=== PATIENT | female | born 1955 | race Caucasian/White ===

== ENCOUNTER → 2018-06-18 | Outpatient (CLI) | payer MEDICARE, BC | END | disposition home or self-care (01) | LOC: LAB 13:12 | PROVIDERS: ATTEND Specialist | DX: R79.89 Other specified abnormal findings of blood chemistry (principal); D64.9 Anemia, unspecified | CPT/HCPCS: 36415; 82272; 82728; 85045 ==

== ENCOUNTER 2018-06-24 06:50 | Day surgery (SDC) | payer MEDICARE, BC ==
[2018-06-23 15:23] VITALS: BP 137/69
--- NOTE | 2018-06-23 16:39 | DIREP ---
PROCEDURE:CHEST 2 VIEWS COMPARISON:None. INDICATIONS:PRE OP FINDINGS: LUNGS/PLEURA:No significant pulmonary parenchymal abnormalities or pleural effusion. CARDIAC:Normal cardiac silhouette and normal pulmonary vascularity. MEDIASTINUM:Normal BONES:Lower thoracic dextroscoliosis. Thoracolumbar screws and rods. OTHER:No additional findings. CONCLUSION:No acute cardiopulmonary process. Dictated by: Sofia Lennon MD on 06/23/2018 at 04:31 PM
[~2018-06-24] VITALS: Ht 167.6 cm; Wt 94.1 kg
[2018-06-24] VITALS (11 sets, daily range): BP systolic 114–144; BP diastolic 50–78
[~2018-06-24 06:50] MED LIST: ACET-687 PO; ALBU8.5H7 IH; CARV3.12 PO; FURO40TA4 PO; HEPARIN ONE; LEVO112T5 PO; NITR0.4T26 SL; NS 1000ML 1,000 ML ONE; OMEP40CA6 PO; PARO30TA45 PO; PRAV40TA2 PO; SUBLIMAZE ONE; VERSED ONE; XYLOCAINE ONE
[2018-06-24] MEDS ORDERED: PHENERGAN PO ONE (07:00)
[2018-06-24] MEDS ORDERED: VALIUM PO ONE (07:00)
[2018-06-24] MEDS ORDERED: NS 1000ML 1,000 ML IV SCH (07:00)
[2018-06-24] MEDS ORDERED: PHENERGAN ONE (07:06)
[2018-06-24] MEDS ORDERED: VALIUM ONE (07:06)
[2018-06-24] MEDS ORDERED: TYLENOL #4 ONE (09:16)
[2018-06-24] MEDS ORDERED: TYLENOL #4 PO ONE (09:30)
--- NOTE | 2018-06-24 10:24 | CCRH ---
DATE OF SERVICE: 06/24/2018 HEART CATH REPORT PRECATHETERIZATION DIAGNOSES: Abnormal myocardial perfusion scan. Preoperative evaluation before knee surgery, obesity, hypertension and PVCs, tachycardia, primarily sinus tachycardia, assess for coronary artery disease. She had an anterior hypoperfusion abnormality with some partial reperfusion breast attenuation versus ischemia was a consideration. POSTCATHETERIZATION DIAGNOSES: Short left main, fully patent, delayed filling of the LAD, but appears to be fully patent, circumflex dominant system with obtuse marginal and posterolateral branches coming off the circumflex and the whole circumflex system is fully patent. Right coronary artery, fair size vessel, appears to be fully patent. Left ventricle is normal in size with an LVEDP of 10 mm. Good wall contractility, ejection fraction of 60%. Angio-Seal deployed. Hemostasis achieved. PREOPERATIVE MEDICATIONS: Phenergan 50 mg p.o., Valium 2.5 mg p.o., Versed 2 mg IV, fentanyl 25 mcg IV. ANTICOAGULATION: Heparin 2000 units intra-arterially, 2000 units in the flush solution, 1000 units in the dye solution. Dye is Omnipaque. Total amount is 60 mL. CATHETERS: JL4 6-H[place] Konger, JR4 6-[place] Konger, and 6-[place]er angled pigtail catheter. ARTERIAL TIME: 6 minutes. FLUOROSCOPY TIME: 1.3 minutes. PROCEDURES: Left heart catheterization, bilateral selective coronary arteriography, left ventriculography via right femoral Lexie approach. NARRATION OF PROCEDURE: Under local anesthesia, right femoral artery was punctured percutaneously by arterial needle, guide wire passed in right femoral artery, 6-H[place] Konger Cordis sheath introduced, side port of the sheath used for femoral arterial pressure monitoring. Sheath anchored with suture. Left Lexie catheter introduced over guide wire into ascending aorta left coronary artery cannulated and left coronary angiography performed in ENGLISH and PANDEY projections with craniocaudal applications to visualize all branches. Left catheter exchanged for right coronary catheter and right coronary angiography performed in ENGLISH and PANDEY. This catheter exchanged for 6-Hong Konger pigtail catheter and catheter crossed the aortic valve and left ventricular LVEDP measured and LV gram performed in 30 degrees PANDEY view with 30 mL Omnipaque dye and panning of descending aorta attempted. Patient tolerated procedure well. No complications of procedure. Angio-Seal deployed for hemostasis. HEMODYNAMICS: LVEDP is 10 mm, LV pressure 127/10, femoral artery pressure 108/62 with a mean of 85. No gradient across the aorta on pullback of the central catheter. FINAL CONCLUSION: Normal coronary angiogram, normal LV function. RECOMMENDATIONS: Low cardiac risk for orthopedic surgery. Risk factor modification advised. David Brown MD DR: VY/jasiel JOB# [id number]
== END 2018-06-24 11:03 | disposition home or self-care (01) ==
LOC: SDC 06:50
PROVIDERS: ATTEND Specialist
DX: I49.3 Ventricular premature depolarization (principal); R00.0 Tachycardia, unspecified; R94.39 Abnormal result of other cardiovascular function study; I34.0 Nonrheumatic mitral (valve) insufficiency; I11.0 Hypertensive heart disease with heart failure; I50.32 Chronic diastolic (congestive) heart failure; M17.0 Bilateral primary osteoarthritis of knee; F10.21 Alcohol dependence, in remission; J44.9 Chronic obstructive pulmonary disease, unspecified; E66.9 Obesity, unspecified; Z68.33 Body mass index [BMI] 33.0-33.9, adult; Z79.899 Other long term (current) drug therapy; Z87.891 Personal history of nicotine dependence; Z98.890 Other specified postprocedural states; Z90.710 Acquired absence of both cervix and uterus; Z96.651 Presence of right artificial knee joint; Z80.8 Family history of malignant neoplasm of other organs or systems; Z82.49 Family history of ischemic heart disease and other diseases of the circulatory system
CPT/HCPCS: 36415; 71046; 85610; 85730; 93458; 99152; C1760; C1894 ×3; J1644 ×3; J2250; J3010; J7030 ×2; Q9967

== ENCOUNTER 2022-05-14 15:33 | Emergency (ER) | payer MEDICARE, BC ==
[~2022-05-14] VITALS: Ht 167.6 cm; Wt 83.9 kg
[2022-05-14 15:33] VITALS: BP 147/113
[~2022-05-14 15:33] MED LIST changes: -HEPARIN ONE; -NS 1000ML 1,000 ML ONE; -OMEP40CA6 PO; +OMEP40CA8 PO; +PARO30TA PO; -PARO30TA45 PO; -SUBLIMAZE ONE; -VERSED ONE; -XYLOCAINE ONE
--- NOTE | 2022-05-14 15:33 | NUR ---
ARRIVAL PT SYMPTOMS SINCE 399, EDP STATES IT IS NOT EMERGENT, NO CODE STROKE CALL NEEDED AT THIS TIME.
[2022-05-14 16:19] LABS: CARBON DIOXIDE 29.7 mmol/L (20.0-32)
--- NOTE | 2022-05-14 16:21 | DIREP ---
PROCEDURE:CT HEAD OR BRAIN W/O CONTRAST COMPARISON:None. INDICATIONS:right sided facial weakness TECHNIQUE:CT images were created without intravenous contrast. FINDINGS: VENTRICLES:The ventricles are normal in size and configuration. CEREBRUM:Normal cerebral morphology with appropriate tovar white matter differentiation. CEREBELLUM:Negative. BRAINSTEM:Negative. BASAL CISTERNS:Negative. HEMORRHAGE (Vol L*W*H*.52):No MASS LESION:No ACUTE INFARCT:No SKULL:Normal. SINUSES:Normal. OTHER:None CONCLUSION:No acute intracranial process Dictated by: Enrrique Monteiro DO on 05/14/2022 at 04:18 PM
[2022-05-14 16:33] LABS: BASOPHIL % 0.6 % (0.0-0.2); EOSINOPHIL # 0.1 10^3/uL (0.0-0.2); EOSINOPHIL % 1.9 % (0.0-5.0); LYMPHOCYTES # 0.92 10^3/uL1 (1.0-4.8); LYMPHOCYTES % 14.3 % (24.0-44.0); MEAN CORP HGB 18.3 pg (26-34); MONOCYTES # 0.5 10^3/uL (0.3-0.8); MONOCYTES % 7.6 % (5.0-12.0); NEUTROPHIL # 4.9 10^3/uL (1.8-7.7); NEUTROPHILS % 75.4 % (41.0-85.0); PLATELET COUNT 240 10^3/uL (150-400); RED CELL DISTRIBUTION WIDTH 20.1 % (11.5-14.5)
--- NOTE | 2022-05-14 16:41 | PCM.EKG ---
[facility] Test Date: 2022-05-14 Test Time: 16:38:21 Pat Name: ANSELMO BYERS Department: Room: Gender: F Evidence Technician: : 1955 Requested By: CONNIE FARFAN Order Number: [id number] Reading MD: Kevin Farfan Measurements Intervals [place] Rate: 86 P: -20 AL: 135 QRS: 4 QRSD: 85 T: 1 QT: 398 QTc: 476 Interpretive Statements Sinus rhythm Borderline T abnormalities, inferior leads No previous ECG available for comparison Electronically Signed On 05-14-2022 23:55:10 CDT by Kevin Farfan Please click the below link to view image of tracing.
--- NOTE | 2022-05-14 16:53 | DIREP ---
PROCEDURE:CHEST 1 VIEW COMPARISON:[facility], CT, CTA HEAD NECK, 05/14/2022, 04:12 PM. [facility], CR, XRAY CHEST 2 VWS, 06/23/2018, 03:42 PM. INDICATIONS:Weakness - Stroke FINDINGS: LUNGS/PLEURA:No focal consolidation, pleural effusion or pneumothorax. VASCULATURE:Normal. Unremarkable pulmonary vasculature. CARDIAC:Borderline cardiomegaly MEDIASTINUM:Normal. No visible mass or adenopathy. BONES:S shaped thoracolumbar scoliosis S shaped thoracolumbar scoliosis OTHER:Negative. CONCLUSION: 1. No focal infiltrate. 2. No change from prior. Dictated by: Rachid Calvo M.D. on 05/14/2022 at 03:50 PM Read in [place]
[2022-05-14 17:53] LABS: BILIRUBIN,URINE NEGATIVE (NEGATIVE); UROBILINOGEN,URINE 0.2 E.U./dL (0.2)
--- NOTE | 2022-05-14 17:54 | DIREP ---
PROCEDURE:CTA HEAD NECK CT-CTA HEAD W/WO CONTRAST COMPARISON:[facility], CT, CT HEAD BRAIN W/O CONTRAST, 05/14/2022, 04:05 PM. INDICATIONS:right sided facial droop - stroke TECHNIQUE:Following the rapid infusion of intravenous contrast, 1.3 mm axial CTA images were obtained through the head and neck. Multiplanar and 3-D reconstructions were performed from source images. FINDINGS: NECK CTA: AORTIC ARCH:Type 1 branching pattern. RIGHT CAROTID:No evidence of hemodynamically significant stenoses. LEFT CAROTID:No evidence of hemodynamically significant stenoses. VERTEBRAL ARTERIES: Diminutive distal left vertebral artery. Patent. NECK TISSUES:Unremarkable. LUNGS:Mild upper lobe predominant emphysematous change. MEDIASTINUM:No mass or adenopathy. BONE:2-3 mm anterolisthesis of C2 on C3.Degenerative change without evidence of acute osseus abnormality. HEAD CTA: INTERNAL CAROTIDS:Focal calcification within the proximal aspect of the right ICA. Mild atherosclerotic calcification also seen within the bilateral cavernous ICAs. Patent. No evidence of hemodynamically significant stenosis. ANTERIOR CEREBRALS:Unremarkable. MIDDLE CEREBRALS:Unremarkable. VERTEBRALS/BASILAR:Diminutive distal left vertebral artery and basilar artery. Probable origin of the bilateral hod carrier. POSTERIOR CEREBRALS:Probable origin of the bilateral hod carrier. PCOMM'S:Present bilaterally. HEAD SOFT TISSUES: Unremarkable. SINUSES:1.3 x 1.1 cm mucous retention cyst versus polyp within the medial left maxillary sinus. Remainder of the visualized paranasal sinuses mastoid air cells are well pneumatized. Please note that this examination was not tailored for evaluation of the brain parenchyma. CONCLUSION: 1. No evidence of hemodynamically significant stenoses or occlusion. 2. Mucous retention cyst versus polyp within the left maxillary sinus. 3. Additional findings as described. Dictated by: Andrew Reynolds MD on 05/14/2022 at 05:41 PM
--- NOTE | 2022-05-14 18:12 | ER.PDOC ---
General Chief Complaint: Stroke Symptoms Stated Complaint: POSSIBLE STROKE Time seen by MD: 15:35 Source: patient, family Exam Limitations: no limitations History of Present Illness Initial Comments Patient is a 66-year-old female with a past medical history of asthma COPD mitral valve regurgitation who comes in with new onset right facial droop and paralysis that started at 4:00 this morning. Patient states that she noticed at 4:00 this morning she could not move the right side of her face she states that she waited so long to come into the [facility] because her had an appointment and she was just cannot go to the ER there where his appointment was. However she later decided that it was too emergent and decided to come into the ER. she has no other symptoms or concerns just states that the right side of her face she cannot blink she cannot move her face she cannot lift her eyebrows - States that nothing makes her symptoms better or worse. Allergies: Coded Allergies: adhesive tape (Verified Allergy, Unknown, Rash, 06/23/18) levofloxacin (Verified Allergy, Unknown, Swelling, 06/23/18) Home Meds Reported Medications Furosemide (FUROSEMIDE) 40 Mg Tablet, 1 TAB PO PRN PRN for SHORTNESS OF BREATH, #30 TAB 5 Refills 06/23/18 Nitroglycerin (NITROGLYCERIN) 0.4 Mg Tab.subl, 0.4 MG SL PRN PRN for CHEST PAIN 06/23/18 Carvedilol 3.125MG (COREG 3.125MG) 3.125 Mg Tablet, 1 TAB PO BID, #180 TAB 1 Ref ill 06/23/18 Omeprazole (OMEPRAZOLE) 40 Mg Capsule.dr, 1 CAP PO DAILY, #30 CAP 3 Refills 06/23/18 Pravastatin Sodium (PRAVASTATIN SODIUM) 40 Mg Tablet, 1 TAB PO DAILY, #90 TAB 1 Refill 06/23/18 Acetaminophen With Codeine (TYLENOL WITH CODEINE #4 TABLET) 1 Each Tablet, 1 TAB PO TID, #120 TAB 06/23/18 Levothyroxine Sodium (LEVOTHYROXINE SODIUM) 112 Mcg Tablet, 1 TAB PO DAILY, #30 TAB 5 Refills 06/23/18 Paroxetine Hcl (PAXIL) 30 Mg Tablet, 1 TAB PO BID, #30 TAB 1 Refill 06/23/18 Albuterol Sulfate (PROAIR HFA) 8.5 Gm Hfa.aer.ad, 8.5 GM IH PRN PRN for SHORTNESS OF BREATH 06/23/18 Past Medical History Medical History: asthma, COPD, GERD, high cholesterol, hypertension, thyroid disease, other Surgical History: back, hysterectomy, knee, other Family History Significant Family History: no pertinent family hx Social History Smoking: less than 1 pack/day Alcohol Use: none Drug Use: marijuana Reviewed Nursing Reviewed: Vital Signs, Abn. Noted, Nursing Assessment Review of Systems Constitutional: no symptoms reported Eyes: no symptoms reported Ears, Nose, Mouth, Throat: no symptoms reported Respiratory: no symptoms reported Cardiovascular: no symptoms reported Gastrointestinal: no symptoms reported Genitourinary: no symptoms reported Musculoskeletal: no symptoms reported Skin: no symptoms reported Psychiatric/Neurological: other (Right-sided facial palsy) Endocrine: denies no symptoms reported, denies see HPI, denies excessive sweating, denies flushing, denies intolerance to cold, denies intolerance to heat, denies increased hunger, denies increased thrist, denies increased urine, denies unexplained weight gain, denies unexplaned weight loss, denies other Hematologic/Lymphatic: denies no symptoms reported, denies see HPI, denies anemia, denies blood clots, denies easy bleeding, denies easy bruising, denies swollen glands, denies other Physical Exam General Appearance: alert HEENT: other (Right-sided paralysis of the face very difficult to notice if it excludes the forehead or not) Neuro/Psych: other (Right-sided face paralysis) Neck: supple, non-tender, no carotid bruit Respiratory: no resp distress, breath sounds nml CVS: reg rate & rhythm, heart sounds nml Abdomen: non-tender, no organomegaly, no distention Skin: color nml, no rash, warm/dry Extremities: non-tender, nml ROM, no pedal edema Results/Orders Results/Orders Orders - CONNIE FARFAN MD Cbc With Auto Diff (05/14/22 15:40) Comprehensive Metabolic Panel (05/14/22 15:40) PT (05/14/22 15:40) Xr Chest 1v (05/14/22 15:40) Partial Thromboplastin Time. (05/14/22 15:40) Urinalysis (05/14/22 15:40) EKG (05/14/22 15:40) Ct Head Wo Contrast (05/14/22 15:40) Saline Lock (05/14/22 15:40) Troponin I High Sensitivity (05/14/22 15:40) Cta Head (05/14/22 15:40) Cta Neck (05/14/22 15:40) Vital Signs Date Time Temp Pulse Resp B/P (MAP) Pulse Ox O2 Delivery O2 Flow Rate FiO2 05/14/22 15:33 98.0 106 20 147/113 (124) 93 Room Air* 0 21 05/14/22 15:33 98.0 106 20 05/14/22 15:33 98.0 106 20 93 Laboratory Tests Test 05/14/22 15:47 05/14/22 17:43 White Blood Count 6.4 10^3/uL (4.5-11.0) Red Blood Count 5.30 10^6/uL (4.00-5.20) H Hemoglobin 9.7 g/dL (12.0-15.0) L Hematocrit 35.8 % (36.0-46.0) L Mean Corpuscular Volume 67.5 fL (78-100) L Mean Corpuscular Hemoglobin 18.3 pg (26-34) L Mean Corpuscular Hemoglobin Concent 27.1 g/dL (33-36.5) L Red Cell Distribution Width 20.1 % (11.5-14.5) H Platelet Count 240 10^3/uL (150-400) Mean Platelet Volume 9.4 fL (7.8-11.0) Neutrophils (%) (Auto) 75.4 % (41.0-85.0) Lymphocytes (%) (Auto) 14.3 % (24.0-44.0) L Monocytes (%) (Auto) 7.6 % (5.0-12.0) Neutrophils # (Auto) 4.9 10^3/uL (1.8-7.7) Lymphocytes # (Auto) 0.92 10^3/uL1 (1.0-4.8) L Monocytes # (Auto) 0.5 10^3/uL (0.3-0.8) Absolute Immature Granulocyte (auto 0.01 10^3 u/L (0-2) Absolute Eosinophils (auto) 0.1 10^3/uL (0.0-0.2) Immature Granulocytes % 0.20 % (0.00-0.50) Eosinophils % 1.9 % (0.0-5.0) Basophils % 0.6 % (0.0-0.2) H Basophils # 0.0 10^3/uL (0.0-0.1) Prothrombin Time 9.7 SEC (9.1-11.5) INR 0.9 Activated Partial Thromboplast Time 18.9 SEC (22.5-33.1) L Sodium Level 136 mmol/L (132-145) Potassium Level 4.4 mmol/L (3.6-5.2) Chloride Level 100.0 mmol/L (96-109) Carbon Dioxide Level 29.7 mmol/L (20.0-32) Anion Gap 10.7 Blood Urea Nitrogen 11 mg/dL (7-18) Creatinine 1.05 mg/dL (0.59-1.40) Estimated GFR () 63.8 (>/=60) Est GFR (CKD-EPI)(Non-Afr Ethiopian) 52.8 (>/=60) BUN/Creatinine Ratio 10.0 (10.0-20.0) Glucose Level 133 mg/dL (70-110) H Calcium Level 8.9 mg/dL (8.4-10.5) Total Bilirubin 0.3 mg/dL (0.2-1.0) Aspartate Amino Transferase (AST) 15 U/L (0-35) Alanine Aminotransferase (ALT) 7 U/L (12-78) L Alkaline Phosphatase 98 U/L (50-136) Troponin I High Sensitivity 18 ng/L (0-50) Total Protein 8.3 g/dL (6.4-8.2) H Albumin 3.3 g/dL (3.4-5.0) L Globulin 5.0 Albumin/Globulin Ratio 0.660 Urine Collection Type RANDOM Urine Color YELLOW Urine Appearance CLEAR Urine Bilirubin NEGATIVE (NEGATIVE) Urine Ketones NEGATIVE (NEGATIVE) Urine Specific [place] 1.010 (1.005-1.030) Urine pH 7.0 (4.5-8.0) Urine Protein NEGATIVE (NEGATIVE) Urine Urobilinogen 0.2 E.U./dL (0.2) Urine Nitrate NEGATIVE (NEGATIVE) Urine Leukocyte Esterase NEGATIVE (NEGATIVE) Urine Glucose (Auto)(UA) NEGATIVE (NEGATIVE) Urine Blood NEGATIVE (NEGATIVE) Progress Progress Patient is here for right-sided palsy this is very much 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 My interpretation of patient's work-up is as follows urine shows no signs of infection.Patient's EKG per my independent interpretation shows a heart rate of 86 sinus rhythm no STEMI QTc of 476 you find more information on the computer readout.Looking at patient's chest x-ray my independent interpretation shows nothing acute radiology later agreed. Patient's chemistry all within normal li mitsPatient has anemia however she states that she has that at baseline looking at patient's CT of her head my independent interpretation shows nothing acute radiology later agreed.Patient's coagulation factors that show a low PTT but otherwise within normal limits. Patient's CTA of the head and neck show nothing acute radiology later agreed. [id number] states that she feels the same with reassuring work-up I discussed that this is likely Gaytan's palsy will give patient artificial tears prednisone and have patient follow-up with her primary care provider she voiced understanding of when to follow-up and when to return to the ER. Independent historians for this patient for the patient and the patient's spouse COVID morbid conditions we must take into consideration that increase patient's risk of COPD mitral valve regurg and asthma Risk of complications morbidity mortality is moderate in this patient she will need close follow-up and has multiple comorbidities. ER DEPART Departure Time of Disposition: 18:11 Disposition: 01 HOME / SELF CARE / HOMELESS Impression: Primary Impression: Gaytan's palsy Condition: Stable Patient Instructions: Gaytan's Palsy Referrals: GRISELDA DAO (PCP) PRIMARY CARE PROVIDER Additional Instructions: Follow-up with your primary care provider within the next 3 to 5 days. If you have any new persistent or worsening symptoms or concerns seek emergent medical attention. Please take all medications as prescribed. Duration or Time Spent with Pa: 45 CONNIE FARFAN MD May 14, 2022 18:12
== END 2022-05-14 18:45 | disposition home or self-care (01) ==
LOC: ER 15:33
DX: G51.0 Bell's palsy (principal); J45.909 Unspecified asthma, uncomplicated; J44.9 Chronic obstructive pulmonary disease, unspecified; E07.9 Disorder of thyroid, unspecified; E78.00 Pure hypercholesterolemia, unspecified; I10 Essential (primary) hypertension; K21.9 Gastro-esophageal reflux disease without esophagitis; F12.90 Cannabis use, unspecified, uncomplicated; Z90.710 Acquired absence of both cervix and uterus; Z88.1 Allergy status to other antibiotic agents
CPT/HCPCS: 99285; 70498; 71045; 70496; 81003; 80053; 85025; 36415; 84484; 85610; 85730; 93005; 70450; Q9965

== ENCOUNTER → 2023-12-14 | Outpatient (CLI) | payer MEDICARE, BC ==
[2023-12-14 19:36] LABS: BASOPHIL % 0.7 % (0.1-1.2); EOSINOPHIL # 0.1 10^3/uL (0.0-0.2); EOSINOPHIL % 1.4 % (0.0-5.0); HEMATOCRIT(ML) 27.6 % (36.0-46.0); HEMOGLOBIN 7.5 g/dL (12.0-15.0); LYMPHOCYTES # 0.87 10^3/uL1 (1.0-4.8); LYMPHOCYTES % 15.2 % (24.0-44.0); MEAN CORP HGB 23.8 pg (26-34); MEAN CORP HGB CONCENTRATION 27.2 g/dL (33-36.5); MEAN CORP VOLUME 87.6 fL (78-100); MONOCYTES # 0.7 10^3/uL (0.3-0.8); MONOCYTES % 12.1 % (5.0-12.0); NEUTROPHILS % 70.6 % (41.0-85.0); PLATELET COUNT 276 10^3/uL (150-400); RED BLOOD CELL 3.15 10^6/uL (4.00-5.20); RED CELL DISTRIBUTION WIDTH 16.4 % (11.5-14.5); WHITE BLOOD CELL 5.7 10^3/uL (4.5-11.0)
[2023-12-14 19:47] LABS: +ADD MANUAL DIFF(NO CHRG) NO
[2023-12-14 22:18] LABS: ANISOCYTOSIS 2+ (NEGATIVE); HYPOCHROMIA 2+ (NEGATIVE); MICROCYTOSIS 2+ (NEGATIVE); STOMATOCYTES 1+ (NEGATIVE)
== END | disposition home or self-care (01) ==
LOC: NPLAB 19:15
PROVIDERS: ATTEND Family Medicine
DX: I50.30 Unspecified diastolic (congestive) heart failure (principal)
CPT/HCPCS: 36415; 85025

== ENCOUNTER → 2023-12-20 | Outpatient (CLI) | payer MEDICARE, BC ==
[2023-12-20 19:49] LABS: BASOPHIL % 0.7 % (0.1-1.2); EOSINOPHIL # 0.1 10^3/uL (0.0-0.2); EOSINOPHIL % 2.1 % (0.0-5.0); HEMOGLOBIN 7.6 g/dL (12.0-15.0); LYMPHOCYTES # 0.72 10^3/uL1 (1.0-4.8); LYMPHOCYTES % 12.5 % (24.0-44.0); MEAN CORP HGB 23.3 pg (26-34); MEAN CORP HGB CONCENTRATION 27.1 g/dL (33-36.5); MEAN CORP VOLUME 85.9 fL (78-100); MONOCYTES # 0.6 10^3/uL (0.3-0.8); MONOCYTES % 10.6 % (5.0-12.0); NEUTROPHIL # 4.3 10^3/uL (1.8-7.7); NEUTROPHILS % 73.9 % (41.0-85.0); PLATELET COUNT 256 10^3/uL (150-400); RED BLOOD CELL 3.26 10^6/uL (4.00-5.20); WHITE BLOOD CELL 5.8 10^3/uL (4.5-11.0)
[2023-12-20 20:04] LABS: ALBUMIN(ML) 2.5 g/dL (3.4-5.0); ALBUMIN/GLOBULIN RATIO 0.49; BUN/CREATININE RATIO 7.22 (10.0-20.0); CALCIUM 8.4 mg/dL (8.4-10.5); CARBON DIOXIDE 37.9 mmol/L (20.0-32); CREATININE SERUM 0.83 mg/dL (0.59-1.40); EST GFR, NON-AA 68.8 (>/=60); POTASSIUM 3.9 mmol/L (3.6-5.2)
[2023-12-20 20:22] LABS: +ADD MANUAL DIFF(NO CHRG) NO; HYPOCHROMIA 2+ (NEGATIVE); POLYCHROMASIA 1+ (NEGATIVE)
[2023-12-20 20:23] LABS: ANISOCYTOSIS 1+ (NEGATIVE); MICROCYTOSIS 1+ (NEGATIVE); POIKILOCYTOSIS 2+ (NEGATIVE); STOMATOCYTES 2+ (NEGATIVE)
== END | disposition home or self-care (01) ==
LOC: NPLAB 19:11
PROVIDERS: ATTEND Family Medicine
DX: I50.30 Unspecified diastolic (congestive) heart failure (principal)
CPT/HCPCS: 36415; 80053; 85025

== ENCOUNTER 2024-01-29 21:51 | Observation (INO) | payer MEDICARE, BC | END 2024-01-30 12:15 | disposition admitted as inpatient to this hospital (09) | LOC: ER 21:51 → OBS 01-30 00:19 | PROVIDERS: ADMIT Student in an Organized Health Care Education/Training Program; ATTEND Student in an Organized Health Care Education/Training Program | DX: I11.0 Hypertensive heart disease with heart failure (principal); I50.9 Heart failure, unspecified; E87.70 Fluid overload, unspecified; N39.0 Urinary tract infection, site not specified; J96.01 Acute respiratory failure with hypoxia; E87.79 Other fluid overload; E72.20 Disorder of urea cycle metabolism, unspecified; J45.909 Unspecified asthma, uncomplicated; K21.9 Gastro-esophageal reflux disease without esophagitis; R60.0 Localized edema; E07.9 Disorder of thyroid, unspecified; E78.00 Pure hypercholesterolemia, unspecified; F41.9 Anxiety disorder, unspecified; G51.0 Bell's palsy; Z90.710 Acquired absence of both cervix and uterus; Z88.5 Allergy status to narcotic agent; Z88.8 Allergy status to other drugs, medicaments and biological substances; Z79.899 Other long term (current) drug therapy | CPT/HCPCS: 99291; 99292; 96375 ×2; 71045; 70450; 80053 ×2; 85025 ×2; 36415 ×2; 84484; 82140; 81001; 83880; 85610; 85730; 93005; 94640; 96365; 96376; 76705; 82948; 82728; 93306; J1940; G0378 ×2; J2270; J7050; J1650; J0696; C9113 ==

== ENCOUNTER 2024-01-29 21:51 | Inpatient (IN) | payer MEDICARE, BC ==
[~2024-01-29] VITALS: Ht 167.6 cm; Wt 94.3 kg
[2024-01-29 21:51] VITALS: BP 149/73; PULSE 80; RESP 20; TEMP 97.8; O2SAT 96
[2024-01-29] MEDS ORDERED: DUONEB 0.5-3(2.5) MG/3 ML IH ONE (21:57)
[2024-01-29 22:03] VITALS: PULSE 51; RESP 16; O2SAT 96
[2024-01-29 22:15] VITALS: PULSE 53; RESP 16; O2SAT 96
[2024-01-29] MEDS: DUONEB 0.5-3(2.5) MG/3 ML IH STA (22:15)
[2024-01-29] MEDS ORDERED: LASIX ONE (22:44)
[2024-01-29] MEDS: LASIX IV STA (23:00)
[2024-01-29 23:05] VITALS: BP 149/73; PULSE 80; RESP 20; TEMP 97.8; O2SAT 96
[2024-01-29 23:07] LABS: BASOPHIL % 0.8 % (0.1-1.2); EOSINOPHIL # 0.1 10^3/uL (0.0-0.2); EOSINOPHIL % 2.1 % (0.0-5.0); HEMATOCRIT(ML) 33.6 % (36.0-46.0); HEMOGLOBIN 8.8 g/dL (12.0-15.0); LYMPHOCYTES # 0.54 10^3/uL1 (1.0-4.8); LYMPHOCYTES % 10.3 % (24.0-44.0); MEAN CORP HGB 21.6 pg (26-34); MEAN CORP HGB CONCENTRATION 26.2 g/dL (33-36.5); MEAN CORP VOLUME 82.6 fL (78-100); MONOCYTES # 0.8 10^3/uL (0.3-0.8); MONOCYTES % 14.9 % (5.0-12.0); NEUTROPHIL # 3.8 10^3/uL (1.8-7.7); NEUTROPHILS % 71.7 % (41.0-85.0); PLATELET COUNT 222 10^3/uL (150-400); RED BLOOD CELL 4.07 10^6/uL (4.00-5.20); RED CELL DISTRIBUTION WIDTH 17.8 % (11.5-14.5); WHITE BLOOD CELL 5.3 10^3/uL (4.5-11.0)
[2024-01-29 23:17] LABS: +ADD MANUAL DIFF(NO CHRG) NO
[2024-01-29 23:30] LABS: ALBUMIN(ML) 2.3 g/dL (3.4-5.0); ALBUMIN/GLOBULIN RATIO 0.425; ANION GAP 8.4; BUN/CREATININE RATIO 8.75 (10.0-20.0); CARBON DIOXIDE 36.4 mmol/L (20.0-32); CREATININE SERUM 0.8 mg/dL (0.59-1.40); EST GFR, NON-AA 71.8 (>/=60); POTASSIUM 4.8 mmol/L (3.6-5.2)
[2024-01-29 23:35] LABS: INR 1.2; PROTHROMBIN PROTIME 12.2 SEC (9.7-11.6)
[2024-01-29 23:50] LABS: BILIRUBIN,URINE NEGATIVE (NEGATIVE); LEUKOCYTE ESTERASE ,URINE TRACE (NEGATIVE); NITRATE,URINE POSITIVE (NEGATIVE); UROBILINOGEN,URINE 0.2 E.U./dL (0.2)
[2024-01-29 23:51] LABS: APPEARANCE,URINE TURBID; UA COLOR YELLOW
[2024-01-30] VITALS (65 sets, daily range): BP systolic 113–194; BP diastolic 55–118; PULSE 47–102; RESP 11–23; TEMP 97–98; O2SAT 82–99
[2024-01-30] MEDS ORDERED: LACTULOSE ONE (00:27)
[2024-01-30] MEDS ORDERED: NS 100ML 100 ML IV ONE ×3 (00:27→20:49)
[2024-01-30] MEDS ORDERED: ROCEPHIN ONE (00:27)
[2024-01-30] MEDS: LACTULOSE PO STA (00:33)
[2024-01-30] MEDS: ROCEPHIN 2,000 MG in NS 100ML 100 ML IV STA (00:33)
[2024-01-30] MEDS ORDERED: NICOTINE 21 MGPATCH TD PRN (01:00)
[2024-01-30] MEDS ORDERED: DEXTROSE 50%-WATER SYRINGE IV PRN (01:00)
[2024-01-30] MEDS ORDERED: DUONEB 0.5-3(2.5) MG/3 ML IH PRN (01:00)
[2024-01-30] MEDS ORDERED: NITROSTAT SL PRN ×2 (01:00)
[2024-01-30] MEDS: LOVENOX SQ SCH (01:30)
[2024-01-30] MEDS: MORPHINE SULFATE IV PRN (01:31)
[2024-01-30 06:01] LABS: BASOPHIL % 0.7 % (0.1-1.2); EOSINOPHIL # 0.1 10^3/uL (0.0-0.2); EOSINOPHIL % 2.1 % (0.0-5.0); HEMATOCRIT(ML) 34.8 % (36.0-46.0); HEMOGLOBIN 9.2 g/dL (12.0-15.0); LYMPHOCYTES # 0.55 10^3/uL1 (1.0-4.8); LYMPHOCYTES % 9.8 % (24.0-44.0); MEAN CORP HGB CONCENTRATION 26.4 g/dL (33-36.5); MEAN CORP VOLUME 83.1 fL (78-100); MONOCYTES # 0.8 10^3/uL (0.3-0.8); MONOCYTES % 14.5 % (5.0-12.0); NEUTROPHIL # 4.1 10^3/uL (1.8-7.7); NEUTROPHILS % 72.7 % (41.0-85.0); PLATELET COUNT 229 10^3/uL (150-400); RED BLOOD CELL 4.19 10^6/uL (4.00-5.20); WHITE BLOOD CELL 5.6 10^3/uL (4.5-11.0)
[2024-01-30 06:16] LABS: +ADD MANUAL DIFF(NO CHRG) NO
[2024-01-30 06:46] LABS: BUN/CREATININE RATIO 12.79 (10.0-20.0); CARBON DIOXIDE 39.2 mmol/L (20.0-32); CREATININE SERUM 0.86 mg/dL (0.59-1.40); POTASSIUM 4.2 mmol/L (3.6-5.2)
[2024-01-30 06:47] LABS: ALBUMIN(ML) 2.4 g/dL (3.4-5.0); ALBUMIN/GLOBULIN RATIO 0.421; CALCIUM 8.4 mg/dL (8.4-10.5)
[2024-01-30 07:05] LABS: ANISOCYTOSIS 1+ (NEGATIVE); HYPOCHROMIA 2+ (NEGATIVE)
[2024-01-30 07:07] LABS: ANISOCYTOSIS 1+ (NEGATIVE); HYPOCHROMIA 2+ (NEGATIVE)
[2024-01-30] MEDS ORDERED: ROCEPHIN IV SCH (09:00)
[2024-01-30] MEDS ORDERED: PAXIL 20MG PO SCH ×2 (09:21→09:22)
[2024-01-30] MEDS: PAXIL PO SCH (09:42)
[2024-01-30] MEDS: COREG PO SCH (09:42)
[2024-01-30] MEDS: PROTONIX IV IV SCH (09:42)
[2024-01-30] MEDS: LACTULOSE PO SCH (09:42)
[2024-01-30] MEDS: SYNTHROID PO SCH (09:42)
[2024-01-30] MEDS: ROCEPHIN 1 GM-D5W BAG 50 ML IV SCH (09:43)
[2024-01-30] MEDS ORDERED: NS 250ML 250 ML ONE (09:46)
[2024-01-30] MEDS ORDERED: LASIX ONE (13:26)
[2024-01-30] MEDS: LASIX IV STA (13:28)
[2024-01-30 14:53] LABS: ABG OX -sO2 99.6 % (94.0-98.0); ABG PCO2 110.3 mmHg (32.0-45.0); ABG PH 7.208 (7.350-7.450); BE(B) 12.2 mmol/L (-2.0-3.0); HCO3act 42.9 mmol/L (21.0-28.0); tHb 9.4 g/dL (12.0-16.0)
[2024-01-30 14:59] LABS: ABG PCO2 84.8 mmHg (32.0-45.0); ABG PH 7.291 (7.350-7.450); BE(B) 11.2 mmol/L (-2.0-3.0); pO2 65.2 mmHg (83.0-108.0); tHb 9.3 g/dL (12.0-16.0)
[2024-01-30] MEDS: ZOSYN 4.5 GM 4.5 GM in NS 100ML 100 ML IV SCH (15:18)
[2024-01-30 15:46] LABS: EOSINOPHIL # 0.1 10^3/uL (0.0-0.2); EOSINOPHIL % 3.2 % (0.0-5.0); HEMATOCRIT(ML) 30.2 % (36.0-46.0); LYMPHOCYTES # 0.52 10^3/uL1 (1.0-4.8); LYMPHOCYTES % 12.6 % (24.0-44.0); MEAN CORP HGB 21.3 pg (26-34); MEAN CORP HGB CONCENTRATION 25.5 g/dL (33-36.5); MEAN CORP VOLUME 83.4 fL (78-100); MONOCYTES # 0.5 10^3/uL (0.3-0.8); MONOCYTES % 12.9 % (5.0-12.0); NEUTROPHIL # 2.9 10^3/uL (1.8-7.7); NEUTROPHILS % 70.1 % (41.0-85.0); PLATELET COUNT 225 10^3/uL (150-400); RED BLOOD CELL 3.62 10^6/uL (4.00-5.20); RED CELL DISTRIBUTION WIDTH 17.9 % (11.5-14.5); WHITE BLOOD CELL 4.1 10^3/uL (4.5-11.0)
[2024-01-30 15:48] LABS: +ADD MANUAL DIFF(NO CHRG) NO; HEMOGLOBIN 7.7 g/dL (12.0-15.0)
[2024-01-30 16:16] LABS: ALBUMIN(ML) 2.1 g/dL (3.4-5.0); ALBUMIN/GLOBULIN RATIO 0.411; ALKALINE PHOSPHATASE 90 U/L (50-136); ANION GAP 5.4; ASPARTATE AMINO TRANSFERASE 12 U/L (0-35); CALCIUM 8.1 mg/dL (8.4-10.5); EST GFR, NON-AA 62.6 (>/=60); GLUCOSE 94 mg/dL (74-106); POTASSIUM 4.2 mmol/L (3.6-5.2); SODIUM 141 mmol/L (132-145)
[2024-01-30 16:52] LABS: ALANINE AMINOTRANSFERASE(ML) < 6 U/L (12-78)
[2024-01-30 16:55] LABS: CARBON DIOXIDE 40.8 mmol/L (20.0-32)
[2024-01-30] MEDS: LIPITOR PO SCH (21:06)
[2024-01-30] MEDS: TYLENOL PO PRN (21:07)
[2024-01-31] VITALS (109 sets, daily range): BP systolic 95–178; BP diastolic 34–106; PULSE 73–97; RESP 10–19; TEMP 97.1–98; O2SAT 79–99
[2024-01-31] MEDS: LASIX IV ONE (01:09)
[2024-01-31] MEDS: MAGNESIUM 2 GRAM/50ML 50 ML IV ONE (01:09)
[2024-01-31] MEDS: MORPHINE SULFATE IV PRN (04:48)
[2024-01-31] MEDS ORDERED: NS 100ML 100 ML IV ONE ×3 (05:16→19:09)
[2024-01-31] MEDS ORDERED: NS 250ML 250 ML ONE (05:16)
[2024-01-31 05:42] LABS: ABG OX -sO2 95.5 % (94.0-98.0); ABG PCO2 95.2 mmHg (32.0-45.0); ABG PH 7.287 (7.350-7.450); HCO3act 44.4 mmol/L (21.0-28.0); pO2 88.7 mmHg (83.0-108.0); tHb 9.3 g/dL (12.0-16.0)
[2024-01-31 06:08] LABS: BASOPHIL # 0.1 10^3/uL (0.0-0.1); BASOPHIL % 1.3 % (0.1-1.2); EOSINOPHIL # 0.2 10^3/uL (0.0-0.2); EOSINOPHIL % 3.6 % (0.0-5.0); HEMATOCRIT(ML) 31.2 % (36.0-46.0); LYMPHOCYTES # 0.57 10^3/uL1 (1.0-4.8); LYMPHOCYTES % 12.2 % (24.0-44.0); MEAN CORP HGB 21.3 pg (26-34); MEAN CORP HGB CONCENTRATION 25.6 g/dL (33-36.5); MONOCYTES # 0.6 10^3/uL (0.3-0.8); MONOCYTES % 13.1 % (5.0-12.0); NEUTROPHIL # 3.2 10^3/uL (1.8-7.7); NEUTROPHILS % 69.6 % (41.0-85.0); PLATELET COUNT 243 10^3/uL (150-400); RED BLOOD CELL 3.76 10^6/uL (4.00-5.20); RED CELL DISTRIBUTION WIDTH 17.9 % (11.5-14.5); WHITE BLOOD CELL 4.7 10^3/uL (4.5-11.0)
[2024-01-31 06:31] LABS: +ADD MANUAL DIFF(NO CHRG) NO
[2024-01-31 06:34] LABS: ALBUMIN(ML) 2.1 g/dL (3.4-5.0); ALBUMIN/GLOBULIN RATIO 0.42; ANION GAP 3.9; BUN/CREATININE RATIO 10.52 (10.0-20.0); CALCIUM 8.1 mg/dL (8.4-10.5); CREATININE SERUM 0.95 mg/dL (0.59-1.40); EST GFR, NON-AA 58.9 (>/=60); POTASSIUM 4.1 mmol/L (3.6-5.2)
[2024-01-31 06:45] LABS: CARBON DIOXIDE 44.2 mmol/L (20.0-32)
[2024-01-31] MEDS: ULTRAM PO PRN (07:22)
[2024-01-31] MEDS: SYNTHROID PO SCH (07:22)
[2024-01-31 07:23] LABS: ANISOCYTOSIS 1+ (NEGATIVE); HYPOCHROMIA 2+ (NEGATIVE); POIKILOCYTOSIS 1+ (NEGATIVE)
[2024-01-31 07:24] LABS: STOMATOCYTES 1+ (NEGATIVE)
[2024-01-31] MEDS: LASIX IV SCH (09:17)
[2024-01-31 14:34] LABS: ABG OX -sO2 95.7 % (94.0-98.0); ABG PCO2 88.9 mmHg (32.0-45.0); ABG PH 7.338 (7.350-7.450); HCO3act 46.7 mmol/L (21.0-28.0); pO2 85.9 mmHg (83.0-108.0); tHb 9.1 g/dL (12.0-16.0)
[2024-01-31] MEDS: ZOFRAN IV PRN (20:18)
[2024-02-01] VITALS (114 sets, daily range): BP systolic 95–193; BP diastolic 41–119; PULSE 80–102; RESP 10–21; TEMP 97–98.5; O2SAT 81–98
[2024-02-01] MEDS ORDERED: NS 250ML 250 ML ONE (04:33)
[2024-02-01 05:05] LABS: BASOPHIL % 0.7 % (0.1-1.2); EOSINOPHIL # 0.2 10^3/uL (0.0-0.2); EOSINOPHIL % 3.5 % (0.0-5.0); HEMATOCRIT(ML) 30.5 % (36.0-46.0); HEMOGLOBIN 7.8 g/dL (12.0-15.0); LYMPHOCYTES # 0.76 10^3/uL1 (1.0-4.8); LYMPHOCYTES % 16.6 % (24.0-44.0); MEAN CORP HGB 21.3 pg (26-34); MEAN CORP HGB CONCENTRATION 25.6 g/dL (33-36.5); MEAN CORP VOLUME 83.1 fL (78-100); MONOCYTES # 0.7 10^3/uL (0.3-0.8); MONOCYTES % 14.2 % (5.0-12.0); NEUTROPHILS % 64.8 % (41.0-85.0); PLATELET COUNT 223 10^3/uL (150-400); RED BLOOD CELL 3.67 10^6/uL (4.00-5.20); RED CELL DISTRIBUTION WIDTH 17.6 % (11.5-14.5); WHITE BLOOD CELL 4.6 10^3/uL (4.5-11.0)
[2024-02-01 05:21] LABS: ABG OX -sO2 90.3 % (94.0-98.0); ABG PCO2 103.3 mmHg (32.0-45.0); ABG PH 7.271 (7.350-7.450); BE(B) 16.6 mmol/L (-2.0-3.0); HCO3act 46.5 mmol/L (21.0-28.0); pO2 66.5 mmHg (83.0-108.0)
[2024-02-01 05:29] LABS: ALBUMIN/GLOBULIN RATIO 0.408; ALKALINE PHOSPHATASE 78 U/L (50-136); ASPARTATE AMINO TRANSFERASE 14 U/L (0-35); CALCIUM 7.9 mg/dL (8.4-10.5); EST GFR, NON-AA 49.7 (>/=60); GLUCOSE 91 mg/dL (74-106); POTASSIUM 3.8 mmol/L (3.6-5.2); SODIUM 140 mmol/L (132-145)
[2024-02-01] MEDS ORDERED: NS 100ML 100 ML IV ONE ×3 (05:45→20:10)
[2024-02-01 05:58] LABS: +ADD MANUAL DIFF(NO CHRG) NO
[2024-02-01 06:00] LABS: ANISOCYTOSIS 2+ (NEGATIVE); HYPOCHROMIA 2+ (NEGATIVE); MICROCYTOSIS 1+ (NEGATIVE); POIKILOCYTOSIS 2+ (NEGATIVE); STOMATOCYTES 2+ (NEGATIVE)
[2024-02-01 06:06] LABS: ALANINE AMINOTRANSFERASE(ML) < 6 U/L (12-78); ANION GAP 1.79999; CARBON DIOXIDE > 45.0 mmol/L (20.0-32)
[2024-02-01] MEDS ORDERED: WATER 20 ML ONE (08:31)
[2024-02-01] MEDS: SOLU-MEDROL IV SCH (08:37)
[2024-02-01] MEDS: BROVANA IH SCH (09:26)
[2024-02-01] MEDS: PULMICORT IH SCH (09:26)
[2024-02-01] MEDS: DUONEB 0.5-3(2.5) MG/3 ML IH SCH (09:26)
[2024-02-01] MEDS: BUMEX IV STA (12:38)
[2024-02-01] MEDS: LASIX IV SCH (16:31)
[2024-02-01] MEDS: ALBUTEIN IV SCH (17:22)
[2024-02-02] VITALS (111 sets, daily range): BP systolic 97–178; BP diastolic 40–120; PULSE 87–108; RESP 10–22; TEMP 97.5–99.1; O2SAT 84–96
[2024-02-02] MEDS ORDERED: NS 100ML 100 ML IV ONE ×2 (03:45→10:02)
[2024-02-02 05:33] LABS: ALBUMIN(ML) 2.8 g/dL (3.4-5.0); ALBUMIN/GLOBULIN RATIO 0.622; ALKALINE PHOSPHATASE 67 U/L (50-136); ASPARTATE AMINO TRANSFERASE 9 U/L (0-35); CALCIUM 7.7 mg/dL (8.4-10.5); CREATININE SERUM 1.21 mg/dL (0.59-1.40); EST GFR, NON-AA 44.5 (>/=60); GLUCOSE 113 mg/dL (74-106); POTASSIUM 3.7 mmol/L (3.6-5.2); SODIUM 138 mmol/L (132-145)
[2024-02-02 05:49] LABS: +ADD MANUAL DIFF(NO CHRG) NO; BASOPHIL % 0.3 % (0.1-1.2); HEMATOCRIT(ML) 26.1 % (36.0-46.0); HEMOGLOBIN 6.9 g/dL (12.0-15.0); LYMPHOCYTES # 0.51 10^3/uL1 (1.0-4.8); LYMPHOCYTES % 14.1 % (24.0-44.0); MEAN CORP HGB 21.6 pg (26-34); MEAN CORP HGB CONCENTRATION 26.4 g/dL (33-36.5); MEAN CORP VOLUME 81.8 fL (78-100); MONOCYTES # 0.2 10^3/uL (0.3-0.8); MONOCYTES % 5.8 % (5.0-12.0); NEUTROPHIL # 2.9 10^3/uL (1.8-7.7); NEUTROPHILS % 79.5 % (41.0-85.0); PLATELET COUNT 179 10^3/uL (150-400); RED BLOOD CELL 3.19 10^6/uL (4.00-5.20); RED CELL DISTRIBUTION WIDTH 17.3 % (11.5-14.5); WHITE BLOOD CELL 3.6 10^3/uL (4.5-11.0)
[2024-02-02 05:50] LABS: ANISOCYTOSIS 1+ (NEGATIVE); HYPOCHROMIA 2+ (NEGATIVE); MICROCYTOSIS 1+ (NEGATIVE); POIKILOCYTOSIS 1+ (NEGATIVE); STOMATOCYTES 1+ (NEGATIVE)
[2024-02-02 05:51] LABS: ALANINE AMINOTRANSFERASE(ML) < 6 U/L (12-78); ANION GAP 4.69999
[2024-02-02 05:53] LABS: CARBON DIOXIDE > 45.0 mmol/L (20.0-32)
[2024-02-02 08:02] LABS: ABG OX -sO2 96.3 % (94.0-98.0); ABG PCO2 81.5 mmHg (32.0-45.0); ABG PH 7.381 (7.350-7.450); BE(B) 19.6 mmol/L (-2.0-3.0); HCO3act 47.2 mmol/L (21.0-28.0); pO2 88.7 mmHg (83.0-108.0); tHb 7.9 g/dL (12.0-16.0)
[2024-02-02] MEDS ORDERED: MORPHINE SULFATE ONE (08:05)
[2024-02-02] MEDS: LACTULOSE PO SCH (08:44)
[2024-02-02 09:26] LABS: BILIRUBIN,URINE NEGATIVE (NEGATIVE); LEUKOCYTE ESTERASE ,URINE TRACE (NEGATIVE); NITRATE,URINE NEGATIVE (NEGATIVE); UROBILINOGEN,URINE 0.2 E.U./dL (0.2)
[2024-02-02 09:27] LABS: APPEARANCE,URINE CLEAR; UA COLOR YELLOW
[2024-02-02 09:51] LABS: HYALINE CASTS, URINE MODERATE (NONE SEEN)
[2024-02-02] MEDS ORDERED: ROCEPHIN ONE (10:01)
[2024-02-02] MEDS: ROCEPHIN 1,000 MG in NS 100ML 100 ML IV SCH (10:05)
[2024-02-02 10:11] LABS: HEMATOCRIT(ML) 27.3 % (36.0-46.0); HEMOGLOBIN 7.2 g/dL (12.0-15.0); MEAN CORP HGB 21.6 pg (26-34); MEAN CORP HGB CONCENTRATION 26.4 g/dL (33-36.5); MEAN CORP VOLUME 81.7 fL (78-100); RED BLOOD CELL 3.34 10^6/uL (4.00-5.20); RED CELL DISTRIBUTION WIDTH 17.3 % (11.5-14.5); WHITE BLOOD CELL 4.6 10^3/uL (4.5-11.0)
[2024-02-02] MEDS ORDERED: MELATONIN PO ONE (19:47)
[2024-02-02] MEDS: MELATONIN PO SCH (20:03)
[2024-02-02] MEDS ORDERED: SEROQUEL PO PRN (21:00)
[2024-02-03] VITALS (48 sets, daily range): BP systolic 86–176; BP diastolic 49–98; PULSE 65–118; RESP 12–25; TEMP 97.2–97.9; O2SAT 88–97
[2024-02-03 06:11] LABS: BASOPHIL % 0.2 % (0.1-1.2); HEMATOCRIT(ML) 26.7 % (36.0-46.0); HEMOGLOBIN 7.1 g/dL (12.0-15.0); LYMPHOCYTES # 0.59 10^3/uL1 (1.0-4.8); LYMPHOCYTES % 13.4 % (24.0-44.0); MEAN CORP HGB 21.8 pg (26-34); MEAN CORP HGB CONCENTRATION 26.6 g/dL (33-36.5); MEAN CORP VOLUME 81.9 fL (78-100); MONOCYTES # 0.4 10^3/uL (0.3-0.8); MONOCYTES % 9.8 % (5.0-12.0); NEUTROPHIL # 3.3 10^3/uL (1.8-7.7); NEUTROPHILS % 76.1 % (41.0-85.0); PLATELET COUNT 151 10^3/uL (150-400); RED BLOOD CELL 3.26 10^6/uL (4.00-5.20); RED CELL DISTRIBUTION WIDTH 17.3 % (11.5-14.5); WHITE BLOOD CELL 4.4 10^3/uL (4.5-11.0)
[2024-02-03 06:40] LABS: +ADD MANUAL DIFF(NO CHRG) NO
[2024-02-03 06:42] LABS: ANISOCYTOSIS 1+ (NEGATIVE); HYPOCHROMIA 2+ (NEGATIVE); MICROCYTOSIS 1+ (NEGATIVE); POIKILOCYTOSIS 1+ (NEGATIVE); STOMATOCYTES 1+ (NEGATIVE)
[2024-02-03 06:44] LABS: ALBUMIN(ML) 2.8 g/dL (3.4-5.0); ALBUMIN/GLOBULIN RATIO 0.583; ALKALINE PHOSPHATASE 74 U/L (50-136); ASPARTATE AMINO TRANSFERASE 14 U/L (0-35); CALCIUM 7.6 mg/dL (8.4-10.5); CREATININE SERUM 1.22 mg/dL (0.59-1.40); EST GFR, NON-AA 44.1 (>/=60); GLUCOSE 116 mg/dL (74-106); POTASSIUM 3.5 mmol/L (3.6-5.2); SODIUM 137 mmol/L (132-145)
[2024-02-03 06:45] LABS: ALANINE AMINOTRANSFERASE(ML) < 6 U/L (12-78); ANION GAP 3.49999; CARBON DIOXIDE > 45.0 mmol/L (20.0-32)
[2024-02-03] MEDS ORDERED: WATER 20 ML ONE (08:42)
[2024-02-03] MEDS ORDERED: ROCEPHIN ONE (08:42)
[2024-02-03] MEDS ORDERED: NS 100ML 100 ML IV ONE (08:42)
[2024-02-03] MEDS: DUONEB 0.5-3(2.5) MG/3 ML IH PRN (21:18)
[2024-02-04] VITALS (13 sets, daily range): BP systolic 143–192; BP diastolic 73–98; PULSE 67–94; RESP 14–20; TEMP 97.1–97.7; O2SAT 86–97
[2024-02-04] MEDS: APRESOLINE IV PRN (03:51)
[2024-02-04] MEDS ORDERED: NS 250ML 250 ML ONE (08:21)
[2024-02-04] MEDS: ROCEPHIN 1 GM-D5W BAG 50 ML IV SCH (09:16)
[2024-02-05] VITALS (15 sets, daily range): BP systolic 136–166; BP diastolic 76–103; PULSE 72–84; RESP 16–20; TEMP 97.4–98.4; O2SAT 87–95
[2024-02-05] MEDS ORDERED: WATER 20 ML ONE (07:59)
[2024-02-05] MEDS ORDERED: QUET25TA3 PO (09:50)
[2024-02-05] MEDS ORDERED: LACT20SO2 PO (09:50)
[2024-02-05] MEDS: ZOFRAN ODT SL PRN (21:20)
[2024-02-05] MEDS: NORCO 5MG PO PRN (21:43)
[2024-02-05] MEDS ORDERED: TORADOL PO PRN (22:00)
[2024-02-06] VITALS (8 sets, daily range): BP systolic 115–149; BP diastolic 73–87; PULSE 65–94; RESP 16–19; TEMP 97–98.6; O2SAT 92–96
== END 2024-02-06 13:57 | disposition hospice, home (50) | DRG 441 ==
LOC: ER 21:51 → OBS 01-30 00:19 → OBSVTOIN 01-30 12:15 → ICU 01-30 13:38 → OBS 02-03 10:30 → MS 02-03 11:08
PROVIDERS: ADMIT Student in an Organized Health Care Education/Training Program; ATTEND Student in an Organized Health Care Education/Training Program
PROC: 5A09457 Assistance with Respiratory Ventilation, 24-96 Consecutive Hours, Continuous Positive Airway Pressure (ICD-10-PCS; principal; 2024-01-30 13:30)
PROC: 5A09357 Assistance with Respiratory Ventilation, Less than 24 Consecutive Hours, Continuous Positive Airway Pressure (ICD-10-PCS; 2024-01-31)
PROC: 5A09357 Assistance with Respiratory Ventilation, Less than 24 Consecutive Hours, Continuous Positive Airway Pressure (ICD-10-PCS; 2024-02-01)
PROC: 5A09357 Assistance with Respiratory Ventilation, Less than 24 Consecutive Hours, Continuous Positive Airway Pressure (ICD-10-PCS; 2024-02-02)
PROC: 5A09357 Assistance with Respiratory Ventilation, Less than 24 Consecutive Hours, Continuous Positive Airway Pressure (ICD-10-PCS; 2024-02-03)
PROC: 5A09357 Assistance with Respiratory Ventilation, Less than 24 Consecutive Hours, Continuous Positive Airway Pressure (ICD-10-PCS; 2024-02-05)
DX: K76.82 Hepatic encephalopathy (principal); G92.8 Other toxic encephalopathy; J96.01 Acute respiratory failure with hypoxia; J96.22 Acute and chronic respiratory failure with hypercapnia; N39.0 Urinary tract infection, site not specified; E66.2 Morbid (severe) obesity with alveolar hypoventilation; I11.0 Hypertensive heart disease with heart failure; I50.9 Heart failure, unspecified; F32.A Depression, unspecified; E07.9 Disorder of thyroid, unspecified; E78.00 Pure hypercholesterolemia, unspecified; K21.9 Gastro-esophageal reflux disease without esophagitis; K74.60 Unspecified cirrhosis of liver; J44.89 Other specified chronic obstructive pulmonary disease; Z88.1 Allergy status to other antibiotic agents; Z90.710 Acquired absence of both cervix and uterus; Z95.0 Presence of cardiac pacemaker; Z79.899 Other long term (current) drug therapy; Z68.33 Body mass index [BMI] 33.0-33.9, adult; Z90.49 Acquired absence of other specified parts of digestive tract
CPT/HCPCS: 36415; 36569; 36600; 70450; 71045; 74150; 76705; 80053; 81001; 82140; 82728; 82803; 82810; 82948; 83735; 83880; 84145; 84484; 85025; 85027; 85610; 85730; 86900; 87086; 87186; 93005; 93306; 94640; 94660; 97161; 99291; 99292; A4216; G0378; J0360; J0696; J1650; J1940; J2270; J2405; J2543; J2919; J3475; J3490; J7050; J7605; J7627; J8499; P9047; 97530-GP; C9113